=== PATIENT | female | born 1970 | race Caucasian/White ===

== ENCOUNTER → 2020-08-08 17:15 | Outpatient (CLI) | payer OTHER, SELFPAY ==
--- NOTE | ~2020-08-08 | MM_ITS ---
EXAMINATION: MM screening [facility] BI w brandy HISTORY: Screening mammogram TECHNIQUE: Craniocaudal and mediolateral oblique 3-D tomosynthesis images were obtained and synthetic 2-D images were generated. CAD analysis was submitted and interpreted. COMPARISON: 08/09/2016, 10/03/2010 BREAST PARENCHYMAL COMPOSITION: The breasts are heterogeneously dense, which may obscure small masses . FINDINGS: RIGHT BREAST: There is no evidence of suspicious mass, calcification, or architectural distortion to suggest malignancy. There has been no significant interval change. LEFT BREAST: Focal asymmetry is present in the subareolar aspect of the breast. IMPRESSION: 1. Focal asymmetry of the subareolar left breast. 2. Additional mammographic views and possible breast ultrasound are recommended. BI-RADS Category 0: Incomplete: Needs additional imaging evaluation. Reviewed, dictated and finalized at location A. BALL INSPECTOR IMPRESSION: 1. Focal asymmetry of the subareolar left breast. 2. Additional mammographic views and possible breast ultrasound are recommended . BI-RADS Category 0: Incomplete: Needs additional imaging evaluation.
== END ==
PROVIDERS: PCP Family Medicine; Visit Provider Physician Assistant
DX: Z12.31 Encounter for screening mammogram for malignant neoplasm of breast (principal); R92.8 Other abnormal and inconclusive findings on diagnostic imaging of breast
CPT/HCPCS: 77063; 77067

== ENCOUNTER → 2020-09-19 08:22 | Outpatient (CLI) | payer OTHER, SELFPAY ==
--- NOTE | ~2020-09-19 | MMUS_ITS ---
EXAMINATION: MM diagnostic anthony LT w brandy, US breast LT complete HISTORY: Follow-up of left breast asymmetry TECHNIQUE: Additional 3-D tomosynthesis images of the left breast were performed and synthetic 2-D im ages were generated. CAD analysis was submitted and interpreted. High resolution left breast ultrasou nd was performed. COMPARISON: Comparison to multiple prior studies sequentially, with oldest reviewed study dated 09/2010. BREAST PARENCHYMAL COMPOSITION: The breasts are heterogenously dense, which may obscure small masses FINDINGS: MAMMOGRAPHIC FINDINGS: There is a 6 mm circumscribed mass at approximately 9:00. No suspicious architectural distortion or c alcifications. ULTRASOUND: Complete left breast ultrasound: At 9:00 near the areola there is a 6 mm cyst, corresponding to the n odule seen on mammography.. IMPRESSION: 1. No evidence for malignancy in the left breast. 2. Routine yearly screening mammogram and regular clinical breast examination are recommended. BI-RADS Category 2: Benign finding(s). Reviewed, dictated and finalized at location A. IGN CAR MECHANIC IMPRESSION: 1. No evidence for malignancy in the left breast. 2. Routine yearly screening mammogram and regular clinical breast examination a re recommended. BI-RADS Category 2: Benign finding(s).
== END ==
PROVIDERS: PCP Family Medicine; Visit Provider Physician Assistant
DX: R92.8 Other abnormal and inconclusive findings on diagnostic imaging of breast (principal)
CPT/HCPCS: 76641; 77061; 77065; G0279

== ENCOUNTER → 2020-10-17 15:00 | Outpatient (REF) | payer OTHER, SELFPAY | LOC: ANHLAB 15:00 | PROVIDERS: PCP Family Medicine; Visit Provider Nurse Practitioner | DX: L72.0 Epidermal cyst (principal) | CPT/HCPCS: 88304 ==

== ENCOUNTER → 2022-03-11 14:10 | Outpatient (CLI) | payer OTHER, SELFPAY ==
--- NOTE | ~2022-03-11 | US_ITS ---
EXAMINATION: US pelvic complete w TV DATE: 03/11/2022 14:32 INDICATION: Postmenopausal bleeding Comparison:No prior studies for comparison. TECHNIQUE: Multiple transabdominal and endovaginal sonographic images of the pelvis performed. FINDINGS: The uterus measures 7.3 x 3.6 x 4 cm. The endometrial complex measures 4.2 mm. The right ovary measures 1.7 x 2.7 x 2.4 cm and the left ovary is not visualized. There are small fol licles in the right ovary. The left ovary is not visualized. Normal doppler signal in both ovaries. There is no free fluid in the pelvis. There are no abnormal masses seen on either side. IMPRESSION: 1. Mild endometrial thickening measuring 4.2 mm. Reviewed, dictated and finalized at location A.
== END ==
PROVIDERS: PCP Family Medicine; Visit Provider Physician Assistant
DX: N95.0 Postmenopausal bleeding (principal)
CPT/HCPCS: 76830; 76856

== ENCOUNTER → 2022-05-09 12:58 | Outpatient (CLI) | payer OTHER, SELFPAY ==
--- NOTE | ~2022-05-09 | MM_ITS ---
EXAMINATION: MM screening [facility] BI w brandy HISTORY: Screening mammogram TECHNIQUE: Craniocaudal and mediolateral oblique 3-D tomosynthesis images were obtained and synthetic 2-D images were generated. CAD analysis was submitted and interpreted. COMPARISON: 09/19/2020, 08/08/2020, 08/09/2016 BREAST PARENCHYMAL COMPOSITION: The breasts are heterogeneously dense, which may obscure small masses . FINDINGS: No suspicious mass, calcification, or architectural distortion are identified in either jeana ast to suggest malignancy. There has been no suspicious interval change. IMPRESSION: 1. No mammographic evidence of malignancy. 2. Recommend routine screening mammography in one year. BI-RADS Category 1: Negative Reviewed, dictated and finalized at location B.
== END ==
PROVIDERS: PCP Family Medicine; Visit Provider Physician Assistant
DX: Z12.31 Encounter for screening mammogram for malignant neoplasm of breast (principal)
CPT/HCPCS: 77063; 77067

== ENCOUNTER 2022-07-19 00:40 | Day surgery (SDC) | payer OTHER, SELFPAY ==
[2022-07-10 13:01] VITALS: BMI 32.5
[2022-07-19 06:37] VITALS: BP 109/55; PULSE 74; RESP 16; TEMP 36.1; O2SAT 100
[2022-07-19] MEDS: LACTATED RINGERS 1,000 ML 150 ML IV CONT (06:41)
--- NOTE | 2022-07-19 07:20 | P.HP_ITS ---
History of Present Illness History of Present Illness Consent: Risks, benefits, and alternatives have been discussed and questions answered. Patient agrees to proceed with procedure. Chief complaint: neoplasm screening Narrative: Brit Kaplan is a 51 year old female Presents for screening colonoscopy. Patient's current weight appetite and bowel movements are normal. Patient denies abdominal pain. She has had no bleeding. Family history has noncontributory. Patient presents today for neoplasia screening colonoscopy. Review of Systems Review of Systems: Review of systems noncontributory. [facility] Past Medical History Medical History (Updated 07/19/22 @ 07:22 by Silvio Felix MD) Benign skin lesion of forehead BMI 32.0-32.9,adult BMI 34.0-34.9,adult BMI over 35 Body mass index [BMI] 36.0-36.9, adult (08/09/16) Cyst, dermoid, trunk Dietary counseling and surveillance (06/24/16) Encounter for screening for lipoid disorders Impingement syndrome of right shoulder Need for Tdap vaccination Screening for lipid disorders SK (seborrheic keratosis) Family History Family History Mother Family history of diabetes mellitus in first degree relative Diabetes mellitus Hypertension Thyroid activity decreased Grandparent Family history of pancreatic cancer Father Diabetes mellitus Dementia Sibling Thyroid activity decreased Social History Social History Smoking status: Never smoker Second hand tobacco smoke exposure: Yes Alcohol intake: never Substance use: never Substance use type: does not use Living arrangements: with family Additional occupation/education comments: [employer] Gender identity (if verbalized by the patient): Female Spiritual care concerns: No Meds Home Medications and Allergies Home Medications Medication Instructions Recorded Confirmed Type No Home Medications 07/19/22 07/19/22 History Allergies Allergy/AdvReac Type Severity Reaction Status Date / Time meperidine Allergy Mild Rash Verified 07/19/22 06:36 morphine Allergy Mild Nausea Verified 07/19/22 06:36 Penicillins Allergy Unknown Unknown Verified 07/19/22 06:36 povidone-iodine AdvReac Intermediate Blister Verified 07/19/22 06:36 [From Betadine] Vital Signs Vital Signs - 24 hr 12/16/22 06:37 Temperature 97 F L Pulse Rate 74 Respiratory Rate 16 Blood Pressure 109/55 L Pulse Oximetry 100 Oxygen Delivery Room Air Exam Narrative: Physical exam reveals patient be alert. Vital signs stable. HEENT exam is unremarkable. Patient is anicteric. Lungs are clear to auscultation and percussion. Heart is without murmur or extra sounds. Abdomen bowel sounds are present soft nontender with no organomegaly. Digital external rectal exam is normal. Assessment and Plan Assessment and plan (1) Encounter for screening colonoscopy: Code(s): Z12.11 - Encounter for screening for malignant neoplasm of colon Status: Acute Assessment and Plan: Patient presents today for screening colonoscopy. She appears to be at average risk for colon polyps. Further recommendations may be given after
--- NOTE | 2022-07-19 08:02 | P.PNAN_ITS ---
Anes - Initial Pre Proc Eval Procedure: Operation Date: 07/19/22 08:00 Proposed Procedures p Screening Colonoscopy - Silvio Felix MD Date/Time: 07/19/22 08:02 Surgeon: Silvio Felix MD Pre Op Diagnosis: neoplasm screening Patient Data Age: 51 Gender: F Height: 1.63 m Weight: 91.6 kg Last Vital Signs Temp 97 F L 07/19/22 06:37 Pulse 74 07/19/22 06:37 Resp 16 07/19/22 06:37 BP 109/55 L 07/19/22 06:37 Pulse Ox 100 07/19/22 06:37 O2 Del Method Room Air 07/19/22 06:37 Allergies Allergy/AdvReac Type Severity Reaction Status Date / Time meperidine Allergy Mild Rash Verified 07/19/22 06:36 morphine Allergy Mild Nausea Verified 07/19/22 06:36 Penicillins Allergy Unknown Unknown Verified 07/19/22 06:36 povidone-iodine AdvReac Intermediate Blister Verified 07/19/22 06:36 [From Betadine] Home Medications Medication Instructions Recorded Confirmed Type No Home Medications 07/19/22 07/19/22 History Patient hx anesthesia problems: none Family hx anesthesia problems: none Results Review: All pre-operative results and documents have been reviewed as part of the pre- operative evaluation. [facility] Past Medical History Medical History (Updated 07/19/22 @ 07:22 by Silvio Felix MD) Benign skin lesion of forehead BMI 32.0-32.9,adult BMI 34.0-34.9,adult BMI over 35 Body mass index [BMI] 36.0-36.9, adult (08/09/16) Cyst, dermoid, trunk Dietary counseling and surveillance (06/24/16) Encounter for screening for lipoid disorders Impingement syndrome of right shoulder Need for Tdap vaccination Screening for lipid disorders SK (seborrheic keratosis) Family History Family History Mother Family history of diabetes mellitus in first degree relative Diabetes mellitus Hypertension Thyroid activity decreased Grandparent Family history of pancreatic cancer Father Diabetes mellitus Dementia Sibling Thyroid activity decreased Social History Social History Smoking status: Never smoker Second hand tobacco smoke exposure: Yes Alcohol intake: never Substance use: never Substance use type: does not use Living arrangements: with family Additional occupation/education comments: [employer] Gender identity (if verbalized by the patient): Female Spiritual care concerns: No Anes - Eval Final PreProcedure Day of Procedure 07/19/22 08:02 Patient weight: obese Heart: regular rate and rhythm Lungs: clear to auscultation Neurological: alert and oriented Last oral intake: >/= 8 hours ASA classification: II Emergent: no Anesthetic plan: proceed Anesthesia type and monitoring: general GIVS and standard monitoring Results Review: All pre-operative results and documents have been reviewed as part of the pre-o perative evaluation. Informed Consent: The patient's anesthetic plan and its attendant risks and benefits were discussed with the patient/family/POA. Questions were solicited and answers provided to the satisfaction of the patient/family/POA.
[2022-07-19] MEDS: SIMETHICONE ORAL SUSPENSION 20 MG/0.3 ML 30 ML BOTTLE 0.6 ML IRRIGATION (08:07)
[2022-07-19 08:14] VITALS: BP 103/55; PULSE 73; RESP 29; O2SAT 100
[2022-07-19 08:24] VITALS: BP 107/62; PULSE 69; RESP 26; O2SAT 100
[2022-07-19 08:31] VITALS: BP 109/66; PULSE 67; RESP 25; O2SAT 100
== END 2022-07-19 08:38 | disposition home or self-care (01) ==
PROVIDERS: PCP Family Medicine; Visit Provider Internal Medicine Gastroenterology
PROC: 0DJD8ZZ Inspection of Lower Intestinal Tract, Via Natural or Artificial Opening Endoscopic (ICD-10-PCS; CPT 45378; principal; 2022-07-19 08:00)
DX: Z12.11 Encounter for screening for malignant neoplasm of colon (principal); K64.8 Other hemorrhoids; K57.30 Diverticulosis of large intestine without perforation or abscess without bleeding; E66.9 Obesity, unspecified; Z68.34 Body mass index [BMI] 34.0-34.9, adult
CPT/HCPCS: 45378; J2704; J7120